=== PATIENT | female | born 1960 | race African-American/Black ===

== ENCOUNTER 2018-12-03 02:17 | Emergency (ER) | payer OTHER ==
[2018-12-03 02:53] VITALS: BMI 29.9
--- NOTE | 2018-12-03 04:24 | PDOC ---
History of Present Illness - History of Present Illness Initial Comments: 12/03/18 04:27 The patient is a 58 year old female with a PMH of NIDDM who presents to our ED c /o a resolved episode of palpitations. Patient states she woke up around 2 a.m. with palpitations, shortness of breath, lightheadedness. No chest pain, nausea, diaphoresis. States she tried to walk around to relieve her symptoms but that made her feel weak prompting her to call the ambulance. Similar episode last year which was also self-resolving. <Nika Reese - Last Filed: 12/03/18 07:00> <Enzo Bassett - Last Filed: 12/03/18 09:08> - General Chief Complaint: Lightheaded Stated Complaint: DIZZINESS Time Seen by Provider: 12/03/18 04:04 Past History - Past Medical History COPD: No Diabetes: Yes - Immunization History Immunization Up to Date: Yes - Suicide/Smoking/Psychosocial Hx Smoking History: Never smoked Have you smoked in the past 12 months: No Information on smoking cessation initiated: No Hx Alcohol Use: No Drug/Substance Use Hx: No <Nika Reese - Last Filed: 12/03/18 07:00> <Enzo Bassett - Last Filed: 12/03/18 09:08> - Past Medical History Allergies/Adverse Reactions: Allergies Allergy/AdvReac Type Severity Reaction Status Date / Time No Known Allergies Allergy Verified 12/03/18 02:37 Home Medications: Ambulatory Orders Glipizide [Glucotrol Xl] 2.5 mg PO DAILY 12/03/18 Review of Systems - Review of Systems Constitutional: No: Chills, Fever HEENTM: No: Blurred Vision, Recent change in vision Respiratory: Yes: Shortness of Breath. No: Cough Cardiac (ROS): Yes: Lightheadedness, Palpitations. No: Syncope ABD/GI: No: Constipated, Diarrhea, Nausea, Vomiting <Nika Reese - Last Filed: 12/03/18 07:00> *Physical Exam - Vital Signs Last Vital Signs Temp Pulse Resp BP Pulse Ox 97.8 F 78 19 126/82 97 12/03/18 02:17 12/03/18 02:17 12/03/18 02:17 12/03/18 02:17 12/03/18 02:17 - Physical Exam General Appearance: Yes: Nourished, Appropriately Dressed HEENT: positive: Normal Voice, Hearing Grossly Normal Neck: positive: Trachea midline, Supple Respiratory/Chest: positive: Lungs Clear, Normal Breath Sounds Cardiovascular: positive: S1, S2 Vascular Pulses: Dorsalis-Pedis (R): 2+, Doralis-Pedis (L): 2+ Gastrointestinal/Abdominal: positive: Normal Bowel Sounds, Soft Extremity: positive: Normal Capillary Refill, Normal Inspection Integumentary: positive: Normal Color, Dry, Warm Neurologic: positive: senior 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 II-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 NML intact, Fully Oriented, Alert <Nika Reese - Last Filed: 12/03/18 07:00> - Vital Signs Last Vital Signs Temp Pulse Resp BP Pulse Ox 98.3 F 69 18 125/69 96 12/03/18 07:45 12/03/18 07:45 12/03/18 07:45 12/03/18 07:45 12/03/18 07:45 <Enzo Bassett - Last Filed: 12/03/18 09:08> Heart Score/ECG Review - ECG Impressions Comment:: 12/03/18 05:38 NSR HR 68, no MICKIE/STD/TWI <Nika Reese - Last Filed: 12/03/18 07:00> ED Treatment Course - LABORATORY CBC & Chemistry Diagram: 12/03/18 04:45 12/03/18 04:45 <Nika Reese - Last Filed: 12/03/18 07:00> - LABORATORY CBC & Chemistry Diagram: 12/03/18 04:45 12/03/18 04:45 - ADDITIONAL ORDERS Additional order review: Laboratory Results 12/03/18 12/03/18 12/03/18 08:06 05:56 04:45 Sodium 141 Potassium 3.9 Chloride 107 Carbon Dioxide 29 Anion Gap 5 L BUN 12 Creatinine 0.9 Est GFR (CKD-EPI)AfAm 81.69 Est GFR (CKD-EPI)NonAf 70.48 POC Glucometer 229 Random Glucose 252 H Calcium 8.8 Total Bilirubin 0.3 AST 11 L ALT 21 Alkaline Phosphatase 80 Creatine Kinase 105 118 Troponin I < 0.02 < 0.02 B-Natriuretic Peptide 20.4 Total Protein 6.9 Albumin 3.4 12/03/18 12/03/18 05:56 04:45 RBC 4.70 MCV 83.2 MCHC 32.6 RDW 13.9 MPV 9.3 Neutrophils % 53.9 Lymphocytes % 36.7 Monocytes % 7.3 Eosinophils % 1.5 Basophils % 0.6 POC Glucometer 229 - Medications Given in the ED: ED Medications Discontinued Medications Generic Name Dose Route Start Last Admin Trade Name Freq PRN Reason Stop Dose Admin Sodium Chloride 1,000 ml 12/03/18 04:25 12/03/18 04:47 Normal Saline - IV 12/03/18 04:26 1,000 ml ONCE ONE Administration <Enzo Bassett - Last Filed: 12/03/18 09:08> Medical Decision Making - Medical Decision Making 12/03/18 05:07 Kathy Dumont is non-toxic appearing 58 yo female with 10 minute episode of palpitations, lightheadedness, shortness of breath. VS unremarkable. Frontal diagnosis: r/o ACS, arrhythmia, valvular heart disease, hypoglycemia. Less likely TIA, hypothyroidism. PLAN: As patient symptom onset 2 hour prior to presentation, patient will require Troponin x2. Reassess 12/03/18 05:38 EKG non-ischemic as documented in EKG section of EMR 12/03/18 05:40 Troponin (-) x1 CMP, CBC otherwise unremarkable 12/03/18 06:43 Repeat Troponin @ 0700 CXR pending Patient to be signed out to Dr. Bassett (Attending) for further evaluation. Likely disposition is home with outpatient cardiology evaluation <Nika Reese - Last Filed: 12/03/18 07:00> *DC/Admit/Observation/Transfer <Nika Reese - Last Filed: 12/03/18 07:00> <Enzo Bassett - Last Filed: 12/03/18 09:08> Diagnosis at time of Disposition: Palpitations - Discharge Dispostion Disposition: HOME Condition at time of disposition: Stable - Referrals Referrals: Christo Reyna MD [Primary Care Provider] - Ghassan Gar MD [Staff Physician] - - Patient Instructions Printed Discharge Instructions: DI for Palpitations
[2018-12-03] MEDS ORDERED: SODIUM CHLORIDE 0.9% 500 ML INFUS.BAG IV ONE (04:25)
[2018-12-03 04:53] LABS: BASO % 0.6 % (0-2.0); EOS % 1.5 % (0-4.5); HEMATOCRIT 39.1 % (32.4-45.2); HEMOGLOBIN 12.8 GM/dL (10.7-15.3); LYMPH % 36.7 % (8-40); MCH 27.2 pg (25.7-33.7); MCHC 32.6 g/dl (32.0-36.0); MEAN CELL VOLUME 83.2 fl (80-96); MEAN PLT VOLUME 9.3 fl (7.5-11.1); MONO % 7.3 % (3.8-10.2); NEUT % 53.9 % (42.8-82.8); PLATELET COUNT 168 K/MM3 (134-434); RDW 13.9 % (11.6-15.6); WHITE BLOOD COUNT 4.6 K/mm3 (4.0-10.0)
[2018-12-03 05:18] LABS: ALBUMIN 3.4 g/dl (3.4-5.0); ALK PHOS 80 U/L (45-117); ANION GAP 5 MMOL/L (8-16); BILIRUBIN,TOTAL 0.3 mg/dL (0.2-1); BLOOD UREA NITROGEN 12 mg/dL (7-18); CALCIUM 8.8 mg/dL (8.5-10.1); CHLORIDE 107 mmol/L (98-107); CO2 29 mmol/L (21-32); CREATININE 0.9 mg/dL (0.55-1.3); GLUCOSE,RANDOM 252 mg/dL (74-106); N-TERMINAL BNP 20.4 pg/ml (5-125); POTASSIUM 3.9 mmol/L (3.5-5.1); SGOT/AST 11 U/L (15-37); SGPT/ALT 21 U/L (13-61); SODIUM 141 mmol/L (136-145); TOT PROT 6.9 g/dl (6.4-8.2)
--- NOTE | 2018-12-03 06:51 | PDOC ---
Documentation entered by Carrillo Tolentino SCRIBE, acting as scribe for Shweta Olivier DO. Shweta Olivier DO: This documentation has been prepared by the Rajan byrd Matthew, SCRIBE, under my direction and personally reviewed by me in its entirety. I confirm that the documentation accurately reflects all work, treatment, procedures, and medical decision making performed by me. Attending Attestation - Resident Resident Name: HughNika - ED Attending Attestation I have performed the following: I have examined & evaluated the patient, The case was reviewed & discussed with the resident, I agree w/resident's findings & plan - HPI HPI: 12/03/18 05:01 Patient is a 58 year old female with a significant past medical history of diabetes, ho presents to the ED with complaints of lightheadedness that occured two hours prior to ED arrival. Patient reports waking up from sleep with sudden lightheadedness as well as associated symptoms of palpitations and nausea. She reports experiencing episodes of shortness of breath and chest palpitations, prompting her to come into the ED for further evaluation. Denies chest pain, sob. Denies nausea, vomiting. Denies contact with sick individuals, out of state travelling. Denies dysuria, hematuria. Denies constipation, diarrhea. Denies any other symptoms. Allergies: NKDA Social history: No smoking.No alcohol.No illicit drugs. Surgical history: None PMD: None - Physicial Exam PE: 12/03/18 05:01 Agree with residents Physical Exam. - Medical Decision Making 12/03/18 06:49 58-year-old female woke up with an episode of shortness of breath and palpitations now resolved Plan for labs, EKG with 30 and 3 hour troponins DC pending results, signed out to day shift
[2018-12-03 07:46] VITALS: BP 125/69; PULSE 69; TEMP 98.3
--- NOTE | 2018-12-03 09:07 | PDOC ---
*Physical Exam - Vital Signs Last Vital Signs Temp Pulse Resp BP Pulse Ox 98.3 F 69 18 125/69 96 12/03/18 07:45 12/03/18 07:45 12/03/18 07:45 12/03/18 07:45 12/03/18 07:45 - Physical Exam Comments: 12/03/18 09:06 Patient endorsed to me by . Patient is a 58-year-old female who presented with a resolved episode of palpitations that awakened her from sleep. EKG revealed no evidence of acute ischemia or dysrhythmia. There is no evidence of right sided heart strain. Chest x-ray revealed no evidence of acute pulmonary disease or cardiomegaly. Serial cardiac enzymes is within normal limit. ACS or PE are highly unlikly. Patient is safe for outpatient discharge and follow-up as needed. ED Treatment Course - LABORATORY CBC & Chemistry Diagram: 12/03/18 04:45 12/03/18 04:45 - ADDITIONAL ORDERS Additional order review: Laboratory Results 12/03/18 12/03/18 12/03/18 08:06 05:56 04:45 Sodium 141 Potassium 3.9 Chloride 107 Carbon Dioxide 29 Anion Gap 5 L BUN 12 Creatinine 0.9 Est GFR (CKD-EPI)AfAm 81.69 Est GFR (CKD-EPI)NonAf 70.48 POC Glucometer 229 Random Glucose 252 H Calcium 8.8 Total Bilirubin 0.3 AST 11 L ALT 21 Alkaline Phosphatase 80 Creatine Kinase 105 118 Troponin I < 0.02 < 0.02 B-Natriuretic Peptide 20.4 Total Protein 6.9 Albumin 3.4 12/03/18 12/03/18 05:56 04:45 RBC 4.70 MCV 83.2 MCHC 32.6 RDW 13.9 MPV 9.3 Neutrophils % 53.9 Lymphocytes % 36.7 Monocytes % 7.3 Eosinophils % 1.5 Basophils % 0.6 POC Glucometer 229 - Medications Given in the ED: ED Medications Discontinued Medications Generic Name Dose Route Start Last Admin Trade Name Freq PRN Reason Stop Dose Admin Sodium Chloride 1,000 ml 12/03/18 04:25 12/03/18 04:47 Normal Saline - IV 12/03/18 04:26 1,000 ml ONCE ONE Administration *DC/Admit/Observation/Transfer Diagnosis at time of Disposition: Palpitations - Discharge Dispostion Condition at time of disposition: Fair - Referrals Referrals: Ghassan Gar MD [Staff Physician] - Christo Reyna MD [Primary Care Provider] - - Patient Instructions - Post Discharge Activity
--- NOTE | 2018-12-03 13:00 | EKG ---
Test Reason : Blood Pressure : / mmHG Vent. Rate : 068 BPM Atrial Rate : 068 BPM P-R Int : 202 ms QRS Dur : 088 ms QT Int : 394 ms P-R-T Axes : 038 017 027 degrees QTc Int : 418 ms NORMAL SINUS RHYTHM NORMAL ECG NO PREVIOUS ECGS AVAILABLE Confirmed by KRISH PATEL, LESLEY ([id number]) on 12/03/2018 12:59:51 PM Referred By: Confirmed By:LESLEY RUTHERFORD MD
== END 2018-12-03 09:30 | disposition home or self-care (01) ==
LOC: JER 02:17
PROC: 3E0337Z Introduction of Electrolytic and Water Balance Substance into Peripheral Vein, Percutaneous Approach (ICD-10-PCS; principal; 2018-12-03)
DX: R00.2 Palpitations (principal)
CPT/HCPCS: 36415; 71045-TC-FY; 80053; 82550; 82962; 83880; 84484; 85025; 93005; 93010; 99283-25